=== PATIENT | female | born 1950 | race Caucasian/White ===

== ENCOUNTER 2017-06-23 09:04 | Outpatient (CLI) | payer MEDICARE, BC ==
[2012-09-20 18:19] VITALS: O2SAT 100
== END 2017-06-23 09:05 | disposition home or self-care (01) | DRG 561 ==
LOC: CONVCARE 09:04
PROVIDERS: ATTEND Orthopaedic Surgery
DX: S52.501D Unspecified fracture of the lower end of right radius, subsequent encounter for closed fracture with routine healing (principal)
CPT/HCPCS: 73110